=== PATIENT | female | born 2005 | race Caucasian/White ===

== ENCOUNTER 2024-07-20 21:44 | Emergency (ER) | payer OTHER, SELFPAY ==
[2024-07-20] VITALS (7 sets, daily range): BP systolic 129–143; BP diastolic 64–93; PULSE 102–123; RESP 16–18; TEMP 37; O2SAT 92–100; BMI 29.3
--- NOTE | 2024-07-20 22:33 | ED_ITS ---
HPI - Overdose General Date Seen: 07/20/24 <Santos Alexis Gordo DO - Last Filed: 07/20/24 23:52> Chief Complaint: Overdose <Santos Caro DO - Last Filed: 07/20/24 23:52> Stated Complaint: Took too much prescribed meds <Santos Caro DO - Last Filed: 07/20/24 23:52> Time Seen by Provider: 07/20/24 22:19 <Santos Alexis AzarGordo DO - Last Filed: 07/20/24 23:52> Source: patient <Santos Caro - Last Filed: 07/20/24 23:52> Mode of arrival: ambulatory <Santos Caro - Last Filed: 07/20/24 23:52> Limitations: no limitations <Santos Caro DO - Last Filed: 07/20/24 23:52> History of Present Illness HPI Narrative: Patient is a 19-year-old female presenting to emergency department after an overdose. She took 11 of her venlafaxine 150 mg pills. States she was feeling overwhelmed and took them in an attempt to overdose. Does states she had an overdose attempt several years ago. Has had previous inpatient visits which she states are not helpful. She has a psychiatrist who she sees regularly and she does states she has a safety plan with them. She had is in the dorms [facility] and states she has family that is out of state. Denies fevers, chills, headache, vision changes, weakness, numbness, diarrhea, constipation. Stating she feels jittery at this time. No other concerns noted. She took the pills at 16:30 and came in now because she started having some chest discomfort. She states she spoke to her psychiatrist who told her to come in. Denies taking any other medication <Santos Caro - Last Filed: 07/20/24 23:52> Related Data Home Medications: Home Medications ?Medication ?Instructions ?Recorded ?Confirmed venlafaxine 150 mg 150 mg PO DAILY 07/11/23 07/05/24 capsule,extended release 24 hr <Santos Alexis Pukwana, DO - Last Filed: 07/20/24 23:52> Allergies/Adverse Reactions: Allergies Allergy/AdvReac Type Severity Reaction Status Date / Time No Known Drug Allergies Allergy Verified 07/05/24 16:57 <Santos Caro DO - Last Filed: 07/20/24 23:52> Review of Systems Status of ROS: Reports: 10 or more systems reviewed and unremarkable except as noted in History and below <Santos Caro DO - Last Filed: 07/20/24 23:52> PFSH PFSH Social History: Social History Do you use any of these nicotine containing products: None How often do you have a drink containing alcohol: never AUDIT-C Alcohol total score: 0 Non-prescribed substance use: denies use <Santos Caro DO - Last Filed: 07/20/24 23:52> Exam Narrative: Exam Narrative: Const: Well-nourished, Well-developed, in no distress Eyes: PERRL, no conjunctival injection, and symmetrical lids HENT: Atraumatic external nose and ears. Moist mucous membranes. Neck: Symmetric, trachea midline, No thyromegaly. CVS: Tachycardia, No murmurs or gallops. Peripheral pulses 2+ and equal in all extremities RESP: Unlabored respiratory effort. Clear to auscultation bilaterally. GI: Nontender/Nondistended, No rebound or guarding. MSK:Extremities w/o deformity, Normal Active ROM Skin: Warm, Dry. No rashes or lesions. Neuro: Normal Muscle tone, No focal neurological deficits. Psych: Awake, Alert, & Oriented x3. Appropriate mood and affect. <Santos Caro DO - Last Filed: 07/20/24 23:52> Const: Vital Signs, click to edit/add: Vital Signs - 24 hr 07/20/24 21:53 07/20/24 23:05 07/20/24 23:06 Temperature 98.6 F Pulse Rate 122 H 109 H Pulse Rate [Pulse Oximeter] 112 H Respiratory Rate 16 18 Blood Pressure 129/87 Blood Pressure [Ri ght Upper Arm] 143/93 H Pulse Oximetry 98 99 99 Oxygen Delivery Me thod Room Air 07/20/24 23:15 07/20/24 23:30 07/20/24 23:32 Temperature Pulse Rate 105 H 105 H 102 H Pulse Rate [Pulse Oximeter] Respiratory Rate 16 Blood Pressure 132/64 Blood Pressure [Ri ght Upper Arm] Pulse Oximetry 100 99 99 Oxygen Delivery Me thod 07/20/24 23:45 07/21/24 00:00 07/21/24 00:11 Temperature Pulse Rate 123 H 108 H 100 Pulse Rate [Pulse Oximeter] Respiratory Rate 16 Blood Pressure 140/93 H Blood Pressure [Ri ght Upper Arm] Pulse Oximetry 92 99 97 Oxygen Delivery Me thod 07/21/24 00:15 07/21/24 00:30 07/21/24 00:31 Temperature Pulse Rate 93 96 98 Pulse Rate [Pulse Oximeter] Respiratory Rate 16 Blood Pressure 126/85 Blood Pressure [Ri ght Upper Arm] Pulse Oximetry 97 98 98 Oxygen Delivery Me thod 07/21/24 00:32 07/21/24 00:45 07/21/24 01:00 Temperature Pulse Rate 97 103 H 101 H Pulse Rate [Pulse Oximeter] Respiratory Rate Blood Pressure Blood Pressure [Ri ght Upper Arm] Pulse Oximetry 98 98 97 Oxygen Delivery Me thod 07/21/24 01:02 07/21/24 01:15 07/21/24 01:30 Temperature Pulse Rate 114 H 111 H 104 H Pulse Rate [Pulse Oximeter] Respiratory Rate 18 Blood Pressure 118/81 Blood Pressure [Ri ght Upper Arm] Pulse Oximetry 98 98 97 Oxygen Delivery Me thod 07/21/24 01:32 07/21/24 01:45 07/21/24 02:00 Temperature Pulse Rate 104 H 96 98 Pulse Rate [Pulse Oximeter] Respiratory Rate 16 Blood Pressure 125/82 Blood Pressure [Ri ght Upper Arm] Pulse Oximetry 98 98 96 Oxygen Delivery Me thod 07/21/24 02:02 07/21/24 02:03 07/21/24 02:15 Temperature Pulse Rate 99 101 H 98 Pulse Rate [Pulse Oximeter] Respiratory Rate 16 Blood Pressure 100/71 Blood Pressure [Ri ght Upper Arm] Pulse Oximetry 96 97 97 Oxygen Delivery Me thod 07/21/24 02:30 07/21/24 02:31 07/21/24 02:45 Temperature Pulse Rate 98 102 H 107 H Pulse Rate [Pulse Oximeter] Respiratory Rate 16 Blood Pressure 117/87 Blood Pressure [Ri ght Upper Arm] Pulse Oximetry 98 100 98 Oxygen Delivery Me thod 07/21/24 03:00 07/21/24 03:02 07/21/24 03:03 Temperature Pulse Rate 105 H 104 H 110 H Pulse Rate [Pulse Oximeter] Respiratory Rate 16 Blood Pressure 119/83 Blood Pressure [Ri ght Upper Arm] Pulse Oximetry 98 100 99 Oxygen Delivery Me thod 07/21/24 03:15 07/21/24 03:30 07/21/24 03:32 Temperature Pulse Rate 101 H 99 102 H Pulse Rate [Pulse Oximeter] Respiratory Rate Blood Pressure 113/80 Blood Pressure [Ri ght Upper Arm] Pulse Oximetry 98 98 99 Oxygen Delivery Me thod 07/21/24 03:45 07/21/24 04:00 07/21/24 04:02 Temperature Pulse Rate 100 89 93 Pulse Rate [Pulse Oximeter] Respiratory Rate Blood Pressure 117/85 Blood Pressure [Ri ght Upper Arm] Pulse Oximetry 96 98 99 Oxygen Delivery Me thod 07/21/24 04:15 07/21/24 04:30 07/21/24 04:31 Temperature Pulse Rate 99 105 H 96 Pulse Rate [Pulse Oximeter] Respiratory Rate Blood Pressure 119/83 Blood Pressure [Ri ght Upper Arm] Pulse Oximetry 97 97 97 Oxygen Delivery Me thod 07/21/24 04:45 07/21/24 05:00 07/21/24 05:02 Temperature Pulse Rate 96 92 109 H Pulse Rate [Pulse Oximeter] Respiratory Rate Blood Pressure 117/79 Blood Pressure [Ri ght Upper Arm] Pulse Oximetry 98 97 98 Oxygen Delivery Me thod 07/21/24 05:15 07/21/24 05:30 07/21/24 05:31 Temperature Pulse Rate 93 90 89 Pulse Rate [Pulse Oximeter] Respiratory Rate Blood Pressure 104/70 Blood Pressure [Ri ght Upper Arm] Pulse Oximetry 97 98 96 Oxygen Delivery Me thod 07/21/24 05:32 07/21/24 05:45 07/21/24 06:00 Temperature Pulse Rate 94 95 94 Pulse Rate [Pulse Oximeter] Respiratory Rate Blood Pressure Blood Pressure [Ri ght Upper Arm] Pulse Oximetry 97 97 91 Oxygen Delivery Me thod 07/21/24 06:02 07/21/24 06:15 07/21/24 06:30 Temperature Pulse Rate 91 96 94 Pulse Rate [Pulse Oximeter] Respiratory Rate Blood Pressure 111/76 Blood Pressure [Ri ght Upper Arm] Pulse Oximetry 91 98 98 Oxygen Delivery Me thod 07/21/24 06:32 07/21/24 06:33 07/21/24 06:45 Temperature Pulse Rate 91 91 92 Pulse Rate [Pulse Oximeter] Respiratory Rate Blood Pressure 110/80 Blood Pressure [Ri ght Upper Arm] Pulse Oximetry 97 97 94 Oxygen Delivery Me thod 07/21/24 07:00 07/21/24 07:02 07/21/24 07:15 Temperature Pulse Rate 107 H 86 90 Pulse Rate [Pulse Oximeter] Respiratory Rate Blood Pressure 119/78 Blood Pressure [Ri ght Upper Arm] Pulse Oximetry 99 98 98 Oxygen Delivery Me thod 07/21/24 07:23 07/21/24 07:30 07/21/24 07:31 Temperature Pulse Rate 109 H 105 H Pulse Rate [Pulse Oximeter] Respiratory Rate Blood Pressure 119/83 Blood Pressure [Ri ght Upper Arm] Pulse Oximetry 98 99 99 Oxygen Delivery Me thod 07/21/24 07:52 07/21/24 07:54 07/21/24 08:00 Temperature Pulse Rate 83 97 90 Pulse Rate [Pulse Oximeter] Respiratory Rate Blood Pressure 126/82 Blood Pressure [Ri ght Upper Arm] Pulse Oximetry 99 100 99 Oxygen Delivery Me thod 07/21/24 08:02 07/21/24 08:15 07/21/24 08:30 Temperature Pulse Rate 104 H 92 106 H Pulse Rate [Pulse Oximeter] Respiratory Rate Blood Pressure 127/80 Blood Pressure [Ri ght Upper Arm] Pulse Oximetry 99 98 99 Oxygen Delivery Me thod 07/21/24 08:31 07/21/24 08:45 07/21/24 09:00 Temperature Pulse Rate 99 90 102 H Pulse Rate [Pulse Oximeter] Respiratory Rate Blood Pressure 131/89 Blood Pressure [Ri ght Upper Arm] Pulse Oximetry 100 99 99 Oxygen Delivery Me thod 07/21/24 09:02 07/21/24 09:15 07/21/24 09:30 Temperature Pulse Rate 109 H 102 H 105 H Pulse Rate [Pulse Oximeter] Respiratory Rate Blood Pressure 120/68 Blood Pressure [Ri ght Upper Arm] Pulse Oximetry 99 98 99 Oxygen Delivery Me thod 07/21/24 09:32 07/21/24 09:45 07/21/24 10:00 Temperature Pulse Rate 104 H 104 H 106 H Pulse Rate [Pulse Oximeter] Respiratory Rate Blood Pressure 139/84 Blood Pressure [Ri ght Upper Arm] Pulse Oximetry 99 98 99 Oxygen Delivery Me thod 07/21/24 10:02 Temperature Pulse Rate 102 H Pulse Rate [Pulse Oximeter] Respiratory Rate Blood Pressure 137/86 Blood Pressure [Ri ght Upper Arm] Pulse Oximetry 99 Oxygen Delivery Me thod <Santos Caro, DO - Last Filed: 07/20/24 23:52> Vital Signs, click to edit/add: Vital Signs - 24 hr 07/20/24 21:53 07/20/24 23:05 07/20/24 23:06 Temperature 98.6 F Pulse Rate 122 H 109 H Pulse Rate [Pulse Oximeter] 112 H Respiratory Rate 16 18 Blood Pressure 129/87 Blood Pressure [Ri ght Upper Arm] 143/93 H Pulse Oximetry 98 99 99 Oxygen Delivery Me thod Room Air 07/20/24 23:15 07/20/24 23:30 07/20/24 23:32 Temperature Pulse Rate 105 H 105 H 102 H Pulse Rate [Pulse Oximeter] Respiratory Rate 16 Blood Pressure 132/64 Blood Pressure [Ri ght Upper Arm] Pulse Oximetry 100 99 99 Oxygen Delivery Me thod 07/20/24 23:45 07/21/24 00:00 07/21/24 00:11 Temperature Pulse Rate 123 H 108 H 100 Pulse Rate [Pulse Oximeter] Respiratory Rate 16 Blood Pressure 140/93 H Blood Pressure [Ri ght Upper Arm] Pulse Oximetry 92 99 97 Oxygen Delivery Me thod 07/21/24 00:15 07/21/24 00:30 07/21/24 00:31 Temperature Pulse Rate 93 96 98 Pulse Rate [Pulse Oximeter] Respiratory Rate 16 Blood Pressure 126/85 Blood Pressure [Ri ght Upper Arm] Pulse Oximetry 97 98 98 Oxygen Delivery Me thod 07/21/24 00:32 07/21/24 00:45 07/21/24 01:00 Temperature Pulse Rate 97 103 H 101 H Pulse Rate [Pulse Oximeter] Respiratory Rate Blood Pressure Blood Pressure [Ri ght Upper Arm] Pulse Oximetry 98 98 97 Oxygen Delivery Me thod 07/21/24 01:02 07/21/24 01:15 07/21/24 01:30 Temperature Pulse Rate 114 H 111 H 104 H Pulse Rate [Pulse Oximeter] Respiratory Rate 18 Blood Pressure 118/81 Blood Pressure [Ri ght Upper Arm] Pulse Oximetry 98 98 97 Oxygen Delivery Me thod 07/21/24 01:32 07/21/24 01:45 07/21/24 02:00 Temperature Pulse Rate 104 H 96 98 Pulse Rate [Pulse Oximeter] Respiratory Rate 16 Blood Pressure 125/82 Blood Pressure [Ri ght Upper Arm] Pulse Oximetry 98 98 96 Oxygen Delivery Me thod 07/21/24 02:02 07/21/24 02:03 07/21/24 02:15 Temperature Pulse Rate 99 101 H 98 Pulse Rate [Pulse Oximeter] Respiratory Rate 16 Blood Pressure 100/71 Blood Pressure [Ri ght Upper Arm] Pulse Oximetry 96 97 97 Oxygen Delivery Me thod 07/21/24 02:30 07/21/24 02:31 07/21/24 02:45 Temperature Pulse Rate 98 102 H 107 H Pulse Rate [Pulse Oximeter] Respiratory Rate 16 Blood Pressure 117/87 Blood Pressure [Ri ght Upper Arm] Pulse Oximetry 98 100 98 Oxygen Delivery Me thod 07/21/24 03:00 07/21/24 03:02 07/21/24 03:03 Temperature Pulse Rate 105 H 104 H 110 H Pulse Rate [Pulse Oximeter] Respiratory Rate 16 Blood Pressure 119/83 Blood Pressure [Ri ght Upper Arm] Pulse Oximetry 98 100 99 Oxygen Delivery Me thod 07/21/24 03:15 07/21/24 03:30 07/21/24 03:32 Temperature Pulse Rate 101 H 99 102 H Pulse Rate [Pulse Oximeter] Respiratory Rate Blood Pressure 113/80 Blood Pressure [Ri ght Upper Arm] Pulse Oximetry 98 98 99 Oxygen Delivery Me thod 07/21/24 03:45 07/21/24 04:00 07/21/24 04:02 Temperature Pulse Rate 100 89 93 Pulse Rate [Pulse Oximeter] Respiratory Rate Blood Pressure 117/85 Blood Pressure [Ri ght Upper Arm] Pulse Oximetry 96 98 99 Oxygen Delivery Me thod 07/21/24 04:15 07/21/24 04:30 07/21/24 04:31 Temperature Pulse Rate 99 105 H 96 Pulse Rate [Pulse Oximeter] Respiratory Rate Blood Pressure 119/83 Blood Pressure [Ri ght Upper Arm] Pulse Oximetry 97 97 97 Oxygen Delivery Me thod 07/21/24 04:45 07/21/24 05:00 07/21/24 05:02 Temperature Pulse Rate 96 92 109 H Pulse Rate [Pulse Oximeter] Respiratory Rate Blood Pressure 117/79 Blood Pressure [Ri ght Upper Arm] Pulse Oximetry 98 97 98 Oxygen Delivery Me thod 07/21/24 05:15 07/21/24 05:30 07/21/24 05:31 Temperature Pulse Rate 93 90 89 Pulse Rate [Pulse Oximeter] Respiratory Rate Blood Pressure 104/70 Blood Pressure [Ri ght Upper Arm] Pulse Oximetry 97 98 96 Oxygen Delivery Me thod 07/21/24 05:32 07/21/24 05:45 07/21/24 06:00 Temperature Pulse Rate 94 95 94 Pulse Rate [Pulse Oximeter] Respiratory Rate Blood Pressure Blood Pressure [Ri ght Upper Arm] Pulse Oximetry 97 97 91 Oxygen Delivery Me thod 07/21/24 06:02 07/21/24 06:15 07/21/24 06:30 Temperature Pulse Rate 91 96 94 Pulse Rate [Pulse Oximeter] Respiratory Rate Blood Pressure 111/76 Blood Pressure [Ri ght Upper Arm] Pulse Oximetry 91 98 98 Oxygen Delivery Me thod 07/21/24 06:32 07/21/24 06:33 07/21/24 06:45 Temperature Pulse Rate 91 91 92 Pulse Rate [Pulse Oximeter] Respiratory Rate Blood Pressure 110/80 Blood Pressure [Ri ght Upper Arm] Pulse Oximetry 97 97 94 Oxygen Delivery Me thod 07/21/24 07:00 07/21/24 07:02 07/21/24 07:15 Temperature Pulse Rate 107 H 86 90 Pulse Rate [Pulse Oximeter] Respiratory Rate Blood Pressure 119/78 Blood Pressure [Ri ght Upper Arm] Pulse Oximetry 99 98 98 Oxygen Delivery Me thod 07/21/24 07:23 07/21/24 07:30 07/21/24 07:31 Temperature Pulse Rate 109 H 105 H Pulse Rate [Pulse Oximeter] Respiratory Rate Blood Pressure 119/83 Blood Pressure [Ri ght Upper Arm] Pulse Oximetry 98 99 99 Oxygen Delivery Me thod 07/21/24 07:52 07/21/24 07:54 07/21/24 08:00 Temperature Pulse Rate 83 97 90 Pulse Rate [Pulse Oximeter] Respiratory Rate Blood Pressure 126/82 Blood Pressure [Ri ght Upper Arm] Pulse Oximetry 99 100 99 Oxygen Delivery Me thod 07/21/24 08:02 07/21/24 08:15 07/21/24 08:30 Temperature Pulse Rate 104 H 92 106 H Pulse Rate [Pulse Oximeter] Respiratory Rate Blood Pressure 127/80 Blood Pressure [Ri ght Upper Arm] Pulse Oximetry 99 98 99 Oxygen Delivery Me thod 07/21/24 08:31 07/21/24 08:45 07/21/24 09:00 Temperature Pulse Rate 99 90 102 H Pulse Rate [Pulse Oximeter] Respiratory Rate Blood Pressure 131/89 Blood Pressure [Ri ght Upper Arm] Pulse Oximetry 100 99 99 Oxygen Delivery Me thod 07/21/24 09:02 07/21/24 09:15 07/21/24 09:30 Temperature Pulse Rate 109 H 102 H 105 H Pulse Rate [Pulse Oximeter] Respiratory Rate Blood Pressure 120/68 Blood Pressure [Ri ght Upper Arm] Pulse Oximetry 99 98 99 Oxygen Delivery Me thod 07/21/24 09:32 07/21/24 09:45 07/21/24 10:00 Temperature Pulse Rate 104 H 104 H 106 H Pulse Rate [Pulse Oximeter] Respiratory Rate Blood Pressure 139/84 Blood Pressure [Ri ght Upper Arm] Pulse Oximetry 99 98 99 Oxygen Delivery Me thod 07/21/24 10:02 Temperature Pulse Rate 102 H Pulse Rate [Pulse Oximeter] Respiratory Rate Blood Pressure 137/86 Blood Pressure [Ri ght Upper Arm] Pulse Oximetry 99 Oxygen Delivery Me thod <Ruben Hui MD - Last Filed: 07/21/24 12:07> Course Vital Signs Vital signs: Initial Vital Signs Temperature 98.6 F 07/20/24 21:53 Temperature Source Temporal Artery Scan 07/20/24 21:53 Pulse Rate 112 H 07/20/24 21:53 Respiratory Rate 16 07/20/24 21:53 Blood Pressure 143/93 H 07/20/24 21:53 Blood Pressure Mean 109 H 07/20/24 21:53 Blood Pressure Position Supine 07/20/24 21:53 Pulse Oximetry 98 07/20/24 21:53 Oxygen Delivery Method Room Air 07/20/24 21:53 Vital Signs Temperature 98.6 F 07/20/24 21:53 Pulse Rate 112 H 07/20/24 21:53 Respiratory Rate 16 07/20/24 21:53 Blood Pressure 143/93 H 07/20/24 21:53 Pulse Oximetry 98 07/20/24 21:53 Oxygen Delivery Method Room Air 07/20/24 21:53 Temperature 98.6 F 07/20/24 21:53 Pulse Rate 102 H 07/21/24 10:02 Respiratory Rate 16 07/21/24 03:02 Blood Pressure 137/86 07/21/24 10:02 Pulse Oximetry 99 07/21/24 10:02 Oxygen Delivery Method Room Air 07/20/24 21:53 <Santos Caro DO - Last Filed: 07/20/24 23:52> Initial Vital Signs Temperature 98.6 F 07/20/24 21:53 Temperature Source Temporal Artery Scan 07/20/24 21:53 Pulse Rate 112 H 07/20/24 21:53 Respiratory Rate 16 07/20/24 21:53 Blood Pressure 143/93 H 07/20/24 21:53 Blood Pressure Mean 109 H 07/20/24 21:53 Blood Pressure Position Supine 07/20/24 21:53 Pulse Oximetry 98 07/20/24 21:53 Oxygen Delivery Method Room Air 07/20/24 21:53 Vital Signs Temperature 98.6 F 07/20/24 21:53 Pulse Rate 112 H 07/20/24 21:53 Respiratory Rate 16 07/20/24 21:53 Blood Pressure 143/93 H 07/20/24 21:53 Pulse Oximetry 98 07/20/24 21:53 Oxygen Delivery Method Room Air 07/20/24 21:53 Temperature 98.6 F 07/20/24 21:53 Pulse Rate 102 H 07/21/24 10:02 Respiratory Rate 16 07/21/24 03:02 Blood Pressure 137/86 07/21/24 10:02 Pulse Oximetry 99 07/21/24 10:02 Oxygen Delivery Method Room Air 07/20/24 21:53 <Ruben Hui MD - Last Filed: 07/21/24 12:07> Medications Administered Medications: Generic Name Dose Route Start Last Admin Trade Name Freq PRN Reason Stop Dose Admin Lorazepam 1 mg 07/20/24 23:51 07/20/24 23:52 Lorazepam 1 Mg Tablet PO 1 mg Q2H PRN Administration <Santos Caro DO - Last Filed: 07/20/24 23:52> Generic Name Dose Route Start Last Admin Trade Name Freq PRN Reason Stop Dose Admin Lorazepam 1 mg 07/20/24 23:51 07/20/24 23:52 Lorazepam 1 Mg Tablet PO 1 mg Q2H PRN Administration <Ruben Hui MD - Last Filed: 07/21/24 12:07> MDM - Overdose MDM Narrative Medical decision making narrative: Patient is a 19-year-old female presenting to the emergency department after an overdose. She used an SNRI. At this time she is tachycardic but showing no other signs of serotonin syndrome. Will check CBC, BMP, test, acetaminophen, salicylate levels. I informed her that will have to monitor for extended period of time per recommendations of poison Control. She states she needs to go home to take care of some stuff tomorrow which I informed her she could not until she is medically cleared in at that time he will be determined if she needs to be hospitalized for her mental health or not. She informed me that she does not think inpatient psychiatric works well for her and is against going. I informed her that if she tries to leave without [facility] discharging her 1st she will be put on a 72 hour hold. She states she understands. Poison Control recommends p.r.n. Ativan which will be given. <Santos Caro DO - Last Filed: 07/20/24 23:52> Patient is a 19-year-old female presenting to the emergency department after an overdose. She used an SNRI. At this time she is tachycardic but showing no other signs of serotonin syndrome. Will check CBC, BMP, test, acetaminophen, salicylate levels. I informed her that will have to monitor for extended period of time per recommendations of poison Control. She states she needs to go home to take care of some stuff tomorrow which I informed her she could not until she is medically cleared in at that time he will be determined if she needs to be hospitalized for her mental health or not. She informed me that she does not think inpatient psychiatric works well for her and is against going. I informed her that if she tries to leave without [facility] discharging her 1st she will be put on a 72 hour hold. She states she understands. Poison Control recommends p.r.n. Ativan which will be given. The patient has had a repeat EKG at 10:00 a.m. this morning about 18 hours after ingestion. EKG looks normal. The patient was then evaluated by child welfare social worker for psychiatric evaluation. The patient does have a therapist and a psychiatrist and has good access to these resources. She has not attempted to harm herself like this in the past and reports a horrible episode of an inpatient admission several years ago. She does have important plans and deadlines regarding her school work and plans for the future that would be jeopardized if she were held away from these plans. It seems that there are more consequences for her to come in to some place that and go back home. Social service consult and my opinion also both agree that this patient seems okay to be discharged home. She has plans to follow-up with her therapist today. <Ruben Hui MD - Last Filed: 07/21/24 12:07> Lab Data Labs: Lab Results 07/20/24 07/21/24 Range/Units 22:40 Unknown WBC 7.84 (4.50-11.00) K/uL RBC 4.61 (4.00-5.20) m/uL Hgb 14.3 (12.0-16.0) gm/dL Hct 41.2 (33.0-51.0) % MCV 89 (80-100) fL MCH 31 (26-34) pg MCHC 35 (32-36) gm/dL RDW Coeff of Mikey 11.8 (11.5-15.5) % Plt Count 232 (140-440) K/uL Neut % (Auto) 63.2 (42.0-72.0) % Lymph % (Auto) 26.5 (20-44) % Laurel % (Auto) 9.2 (0.0-11.0) % Eos % (Auto) 0.4 (0.0-7.0) % Baso % (Auto) 0.1 (0.0-3.0) % Neut # (Auto) 4.95 (1.7-7.0) K/uL Lymph # (Auto) 2.08 (0.90-2.90) K/uL Laurel # (Auto) 0.70 (0.00-0.90) K/UL Eos # (Auto) 0.03 (0.00-0.50) K/uL Baso # (Auto) 0.01 (0.00-0.30) K/uL Abs Immat Gran (auto) 0.05 (0.00-0.30) K/uL Imm/Tot Granulo (auto) 0.6 % Sodium 135 (135-149) mmol/L Potassium 3.4 L (3.6-5.1) mmol/L Chloride 101 (96-114) mmol/L Carbon Dioxide 24 (20-32) mmol/L Anion Gap 10 (7-15) mEq/L BUN 9 (5-24) mg/dL Creatinine 0.6 (0.5-1.5) mg/dL Estimated Creat Clear 118.29 Estimated GFR 132 ml/min Glucose 112 (60-115) mg/dL Calcium 9.7 (8.4-10.6) mg/dL HCG, Qual Negative (Negative) Salicylates < 1.0 L (1.0-10) mg/dL Urine Opiates Screen Negative (Negative) Ur Oxycodone Screen Negative (Negative) Urine Methadone Screen Negative (Negative) Acetaminophen < 10.0 L (10.0-30.0) ug/mL Ur Barbiturates Screen Negative (Negative) U Tricyclic Antidepress Negative (Negative) Ur Phencyclidine Scrn Negative (Negative) Ur Amphetamines Screen Negative (Negative) U Methamphetamines Scrn Negative (Negative) U Benzodiazepines Scrn POSITIVE A (Negative) Urine Cocaine Screen Negative (Negative) U Marijuana (THC) Screen Negative (Negative) Ur Drug Screen Comment See Note <Santos Caro, DO - Last Filed: 07/20/24 23:52> Lab Results 07/20/24 07/21/24 Range/Units 22:40 Unknown WBC 7.84 (4.50-11.00) K/uL RBC 4.61 (4.00-5.20) m/uL Hgb 14.3 (12.0-16.0) gm/dL Hct 41.2 (33.0-51.0) % MCV 89 (80-100) fL MCH 31 (26-34) pg MCHC 35 (32-36) gm/dL RDW Coeff of Mikey 11.8 (11.5-15.5) % Plt Count 232 (140-440) K/uL Neut % (Auto) 63.2 (42.0-72.0) % Lymph % (Auto) 26.5 (20-44) % Laurel % (Auto) 9.2 (0.0-11.0) % Eos % (Auto) 0.4 (0.0-7.0) % Baso % (Auto) 0.1 (0.0-3.0) % Neut # (Auto) 4.95 (1.7-7.0) K/uL Lymph # (Auto) 2.08 (0.90-2.90) K/uL Laurel # (Auto) 0.70 (0.00-0.90) K/UL Eos # (Auto) 0.03 (0.00-0.50) K/uL Baso # (Auto) 0.01 (0.00-0.30) K/uL Abs Immat Gran (auto) 0.05 (0.00-0.30) K/uL Imm/Tot Granulo (auto) 0.6 % Sodium 135 (135-149) mmol/L Potassium 3.4 L (3.6-5.1) mmol/L Chloride 101 (96-114) mmol/L Carbon Dioxide 24 (20-32) mmol/L Anion Gap 10 (7-15) mEq/L BUN 9 (5-24) mg/dL Creatinine 0.6 (0.5-1.5) mg/dL Estimated Creat Clear 118.29 Estimated GFR 132 ml/min Glucose 112 (60-115) mg/dL Calcium 9.7 (8.4-10.6) mg/dL HCG, Qual Negative (Negative) Salicylates < 1.0 L (1.0-10) mg/dL Urine Opiates Screen Negative (Negative) Ur Oxycodone Screen Negative (Negative) Urine Methadone Screen Negative (Negative) Acetaminophen < 10.0 L (10.0-30.0) ug/mL Ur Barbiturates Screen Negative (Negative) U Tricyclic Antidepress Negative (Negative) Ur Phencyclidine Scrn Negative (Negative) Ur Amphetamines Screen Negative (Negative) U Methamphetamines Scrn Negative (Negative) U Benzodiazepines Scrn POSITIVE A (Negative) Urine Cocaine Screen Negative (Negative) U Marijuana (THC) Screen Negative (Negative) Ur Drug Screen Comment See Note <Ruben Hui MD - Last Filed: 07/21/24 12:07> ECG Data Attestation: I personally reviewed and interpreted this ECG as follows: <Santos Caro DO - Last Filed: 07/20/24 23:52> Prior ECG tracings: not available for review <Santos Caro DO - Last Filed: 07/20/24 23:52> Interpretation: Initial EKG shows sinus tachycardia rate of 113 beats per minute, normal intervals, normal axis, no ST or T-wave abnormalities. <Satnos Caro DO - Last Filed: 07/20/24 23:52> Initial EKG shows sinus tachycardia rate of 113 beats per minute, normal intervals, normal axis, no ST or T-wave abnormalities. Repeat EKG shows sinus tachycardia with a rate of 110 beats per minute. There are no specific ST or T-wave abnormalities. <Ruben Hui MD - Last Filed: 07/21/24 12:07> Discharge Plan Discharge Clinical Impression: Drug overdose Qualifiers: Encounter type: initial encounter Injury intent: intentional self-harm Qualified Code(s): T50.902A - Poisoning by unspecified drugs, medicaments and biological substances, intentional self-harm, initial encounter <Santos Caro DO - Last Filed: 07/20/24 23:52> Additional Instructions: Follow-up with therapist for ongoing management. Review medications with your psychiatrist. Resume normal dosing of Effexor to avoid withdrawal symptoms. Return to emergency department if worsening symptoms occur. <Santos Caro DO - Last Filed: 07/20/24 23:52> Prescriptions: No Action venlafaxine 150 mg capsule,extended release 24hr 150 mg PO DAILY <Santos Caro DO - Last Filed: 07/20/24 23:52> Follow Up/Referrals: Provider,Not a Local [Primary Care Provider] - <Santos Caro DO - Last Filed: 07/20/24 23:52>
[2024-07-20 22:50] LABS: Basophils Absolute Auto 0.01 K/uL (0.00-0.30); Basophils Percent Auto 0.1 % (0.0-3.0); Eosinophils Absolute Auto 0.03 K/uL (0.00-0.50); Eosinophils Percent Auto 0.4 % (0.0-7.0); Hematocrit 41.2 % (33.0-51.0); Hemoglobin* 14.3 gm/dL (12.0-16.0); Immature Granulocytes Abs Auto 0.05 K/uL (0.00-0.30); Immature Granulocytes Pct Auto 0.6 %; Lymphocytes Absolute Auto 2.08 K/uL (0.90-2.90); Lymphocytes Percent Auto 26.5 % (20-44); Mean Corpuscular HGB Conc 35 gm/dL (32-36); Mean Corpuscular Hemoglobin 31 pg (26-34); Mean Corpuscular Volume 89 fL (80-100); Monocytes Percent Auto 9.2 % (0.0-11.0); Neutrophils Absolute Auto 4.95 K/uL (1.7-7.0); Neutrophils Percent Auto 63.2 % (42.0-72.0); Platelet Count* 232 K/uL (140-440); RDW Coefficient of Variation % 11.8 % (11.5-15.5); Red Blood Count 4.61 m/uL (4.00-5.20); White Blood Count* 7.84 K/uL (4.50-11.00)
[2024-07-20 23:04] LABS: Chloride* 101 mmol/L (96-114); Potassium* 3.4 mmol/L (3.6-5.1); Slide Review Reflex No; Sodium* 135 mmol/L (135-149)
[2024-07-20 23:07] LABS: Anion Gap 10 mEq/L (7-15); Blood Urea Nitrogen* 9 mg/dL (5-24); Calcium* 9.7 mg/dL (8.4-10.6); Carbon Dioxide* 24 mmol/L (20-32); Creatinine* 0.6 mg/dL (0.5-1.5); Est. Creatinine Clearance* 118.29; Estimated Glomerular Filt Rate 132 ml/min; Glucose* 112 mg/dL (60-115)
[2024-07-20 23:09] LABS: Acetaminophen* < 10.0 ug/mL (10.0-30.0); Salicylate* < 1.0 mg/dL (1.0-10)
[2024-07-20 23:24] LABS: HCG Qualitative Serum* Negative (Negative)
[2024-07-20] MEDS: LORazepam 1 MG TABLET PO (23:52)
[2024-07-21] VITALS (70 sets, daily range): BP systolic 100–140; BP diastolic 68–93; PULSE 83–114; RESP 16–18; O2SAT 91–100
[2024-07-21 07:54] LABS: Amphetamine Screen Urine Negative (Negative); Barbiturate Screen Urine Negative (Negative); Benzodiazepines Screen Urine POSITIVE (Negative); Cannabinoid Screen Urine Negative (Negative); Cocaine Screen Urine Negative (Negative); Methadone Screen Urine Negative (Negative); Methamphetamines Screen Urine Negative (Negative); Opiate Screen Urine Negative (Negative); Oxycodone Screen Urine Negative (Negative); Phencyclidine Screen Urine Negative (Negative); Tricyclic Antidepressant Urine Negative (Negative)
--- NOTE | 2024-07-21 13:09 | PC.SOCIAL ---
Social work: Mental Health Assessment completed with pt. Please see scanned note in chart for details.
== END 2024-07-21 12:15 | disposition home or self-care (01) ==
PROVIDERS: Emergency Provider Student in an Organized Health Care Education/Training Program; Visit Provider Student in an Organized Health Care Education/Training Program
DX: T43.292A Poisoning by other antidepressants, intentional self-harm, initial encounter (principal)
CPT/HCPCS: 36415; 80048; 80143; 80179; 80306; 84703; 85025; 93005; 94761; 99284; A9270